=== PATIENT | female | born 1960 | race Caucasian/White ===

== ENCOUNTER → 2022-02-21 | Outpatient (CLI) | payer OTHER | LOC: MC.RAD 07:40 | DX: Z12.31 Encounter for screening mammogram for malignant neoplasm of breast (principal) ==

== ENCOUNTER → 2023-10-11 | Outpatient (CLI) | payer BC | LOC: MC.RAD 12:35 | DX: Z12.31 Encounter for screening mammogram for malignant neoplasm of breast (principal) ==